=== PATIENT | male | born 1980 | race Caucasian/White ===

== ENCOUNTER 2016-06-09 05:27 | Day surgery (SDC) | payer OTHER ==
[2016-06-09] MEDS ORDERED: 1/2 NS 500 ML ONE (06:07)
[2016-06-09] MEDS ORDERED: DIPRIVAN 1% 50 ML ONE (07:32)
[2016-06-09] MEDS ORDERED: MYLICON DROPS (DOSE) MISC ONE (07:55)
[2016-06-09] MEDS ORDERED: XYLOCAINE-MPF 2% ONE (09:36)
[2016-06-09 09:46] VITALS: BP 144/92
[2016-06-09] MEDS ORDERED: VERSED ONE (14:08)
--- NOTE | 2016-06-15 20:40 | OPERATIVE NOTE ---
PROCEDURE DATE: 06/09/2016 REFERRING PHYSICIAN: José Miguel Gill MD INDICATION FOR PROCEDURE: 1. Nausea with vomiting. 2. Dysphagia. 3. Diarrhea. 4. Heartburn. PROCEDURE PERFORMED: Esophagogastroduodenoscopy with biopsy. CONSENT: Informed consent was obtained from the patient and his mother prior to the procedure. The risks, benefits, and alternatives were discussed. MEDICATIONS: The patient received monitored anesthesia care. PERFORMING PHYSICIAN: Carla Zhong MD. ASSISTANTS: 1. TR Coffman. 2. Sindi Aj RN. 3. Tahmina Turner CRNA. 4. Vinod Rivera MD (Anesthesia). COMPLICATIONS: There were no complications. ESTIMATED BLOOD LOSS: Less than 1 mL. SPECIMENS REMOVED: 1. Duodenal biopsies. 2. Gastric biopsies. FINDINGS: After sedation was achieved, the upper endoscope was inserted to the 2nd portion of the duodenum. The hypopharynx appeared endoscopically normal. The tubular esophagus was normal to the distal esophagus. In the distal esophagus, there were multiple scattered erosions that involved less than 75% of the luminal service consistent with grade B erosive esophagitis. There was a single superficial ulcer at the GE junction with a whitish base and no stigmata of bleeding. The GE junction was measured at 40 cm from the incisors. There was a hiatal hernia from 40-45 cm. In the gastric lumen, there were streaks of erythema consistent with erosive gastritis with superficial erosions present. There was an antral predominance. There was a superficial ulcer with a whitish base in the mid gastric body. There was no stigmata of bleeding. On retroflexed view, there was the aforementioned erosive gastritis, but no other findings. The pylorus appeared endoscopically normal. In the duodenum, there was severe erosive duodenitis with a superficial whitish based ulcer in the bulb. The second portion of the duodenum was erythematous, but no ulcerations were found. After the exam was complete, biopsies were taken from the duodenum and gastric mucosa. The lumen was decompressed and the scope was removed without incident. IMPRESSION: 1. Grade B erosive esophagitis. 2. Superficial esophageal ulcer. 3. Hiatal hernia. 4. Erosive gastritis. 5. Gastric ulcer. 6. Duodenal ulcer. 7. Duodenitis. RECOMMENDATION: 1. Await biopsy results. 2. Begin Prilosec 40 mg daily. 3. Begin Carafate 1 g 4 times a day for 1 month, then stop given his kidney disease. 4. We will proceed with colonoscopy as previously scheduled.
--- NOTE | 2016-06-15 20:56 | OPERATIVE NOTE ---
PROCEDURE DATE: 06/09/2016 REFERRING PHYSICIAN: José Miguel Gill. INDICATION FOR PROCEDURE: 1. Diarrhea. 2. Fecal incontinence, new. PROCEDURE PERFORMED: Colonoscopy with biopsy. CONSENT: Informed consent was obtained from the patient and his mother prior to the procedure. The risks, benefits, and alternatives were discussed. MEDICATION: The patient received monitored anesthesia care. PERFORMING PHYSICIAN: Carla Zhong MD. ASSISTANTS: 1. TR Coffman. 2. Sindi Aj RN. 3. Tahmina Turner CRNA. 4. Vinod Rivera MD (Anesthesia). COMPLICATIONS: There were no complications. ESTIMATED BLOOD LOSS: Less than 1 mL. SPECIMENS: Random colon biopsy. CECAL INTUBATION TIME: 11 minutes due to looping and tortuosity. WITHDRAWAL: Time: 7 minutes. PREP QUALITY: Poor. Copious amounts of fecal residue had to be evacuated in order to complete the exam. FINDINGS: After the EGD was performed, the pediatric colonoscope was inserted to the cecum. The base of the cecum was obscured by thick tenacious fecal residue that could not be evacuated. There was no evidence of large masses or ulcers identified. The ileocecal valve appeared otherwise normal. Upon withdrawal, the colonic mucosa in the ascending, transverse, descending, and sigmoid colon appeared endoscopically normal. Random biopsies were taken. In the upper rectum, there were grade 1 internal hemorrhoids. On retroflexed view, there were large external hemorrhoids. In the mid rectal body, there were rectal AVMs. After the exam was complete, lumen was decompressed and the scope was removed without incident. IMPRESSION: 1. Poor prep. 2. Grossly normal-appearing colon. 3. Grade 1 internal hemorrhoids. 4. Large external hemorrhoids. 5. Nonbleeding rectal arteriovenous malformations. RECOMMENDATION: 1. Await biopsy results. 2. Begin Bentyl 10 mg p.o. 4 times a day for the diarrhea. 3. He may require anorectal manometry if the fecal incontinence does not improve on Bentyl. 4. He was encouraged to increase the fiber in his diet. 5. I will have the patient return to clinic in 4 weeks to assess interval progress.
== END 2016-06-09 10:05 | disposition home or self-care (01) ==
LOC: ENDO 05:27
PROVIDERS: ATTEND Internal Medicine Gastroenterology
DX: K29.50 Unspecified chronic gastritis without bleeding (principal); R19.7 Diarrhea, unspecified; R15.9 Full incontinence of feces; K64.0 First degree hemorrhoids; K64.4 Residual hemorrhoidal skin tags; Q27.33 Arteriovenous malformation of digestive system vessel; K22.10 Ulcer of esophagus without bleeding
CPT/HCPCS: 88305; 88312; 88313; J2250

== ENCOUNTER 2016-07-20 19:42 | Inpatient (IN) ==
[2016-07-20 20:26] LABS: MANUAL DIFF NEEDED? NO
[2016-07-20 20:35] LABS: BASO% 0.2 % (0.0-0.8); EOS# 0.14 X1000 (0.0-0.7); EOS% 1.5 % (0.0-10.0); HEMATOCRIT 36.9 % (42.0-52.0); HEMOGLOBIN 12.5 g/dL (14.0-18.0); LYMPH# 1.16 X1000 (1.2-3.4); LYMPH% 12.2 % (20.5-51.1); MCH 28.3 PG (27-31); MCHC 33.9 g/dL (33-37); MCV 83.5 FL (81-99); MONO# 0.56 X1000 (0.11-0.59); MONO% 5.9 % (1.7-9.3); MPV 9.5 FL (7.4-10.4); NEUT% 80.2 % (42.2-75.2); PLT 310 X1000 (130-400); RBC 4.42 XMIL (4.7-6.1)
[2016-07-20] MEDS ORDERED: ZOFRAN IV ONE (20:51)
[2016-07-20 21:13] LABS: ALBUMIN 3.9 g/dL (3.5-5.0); CALCIUM 9.9 mg/dL (8.8-10.2); POTASSIUM 3.5 mmol/L (3.5-5.1); TOTAL BILIRUBIN 0.44 mg/dL (0.20-1.00); TOTAL PROTEIN 6.8 g/dL (6.3-8.3)
[2016-07-20] MEDS ORDERED: ATIVAN IV ONE (22:08)
[2016-07-20] MEDS ORDERED: ATIVAN IV PRN (23:57)
[2016-07-20] MEDS ORDERED: ZOFRAN IV PRN (23:57)
--- NOTE | 2016-07-21 00:03 | HISTORY AND PHYSICAL ---
PRIMARY CARE PHYSICIAN: None. CHIEF COMPLAINT: Abdominal pain. HISTORY OF PRESENTING ILLNESS: A 36-year-old, unfortunate male, with a history of spina bifida, end-stage renal disease, hypertension and GERD, who had presented to the emergency department with 1-day history of having worsening abdominal pain. He describes it as a cramping, and he was having nausea, vomiting. He rated the pain at 10/10, and subsequently had come to emergency department. In the ER, he was evaluated. He had imaging done, and as per ER physician he had a small bowel obstruction. An NG tube was placed, and he had some improvement. Due to his presenting symptoms, it was thought that he would need hospitalization for further management. At the time of my examination, he had denied any headache, fever, chills, chest pain, hemoptysis, or weight changes, but complained of still having some abdominal pain. PAST MEDICAL HISTORY: End-stage renal disease on peritoneal dialysis, spina bifida, hypertension, GERD. PAST SURGICAL HISTORY: Back surgery, left kidney transplant, bladder augmentation, multiple orthopedic surgeries to his lower extremities. ALLERGIES: Iron, latex, meperidine and morphine. CURRENT MEDICATIONS: As in MAR. SOCIAL HISTORY: No history of smoking, alcohol or illicit drug use. FAMILY HISTORY: No history of coronary disease. REVIEW OF SYSTEMS: Twelve point systems is as in HPI. Other systems negative. PHYSICAL EXAMINATION: GENERAL: Cooperative, friendly male, he is resting comfortably now. VITAL SIGNS: Temperature 97.5, pulse 113, respirations 22, blood pressure 156/95. He is saturating 100%. HEENT: Atraumatic, normocephalic. PERRLA. NECK: No masses. CHEST: Clear to auscultation. CARDIOVASCULAR: Regular rate and rhythm. ABDOMEN: Soft and distended. EXTREMITIES: Has +1 edema. NEURO: He is awake, alert, oriented x3. : No bladder distention. SKIN: Warm. LABORATORIES AND STUDIES: Sodium 141, potassium 3.5, chloride 91, CO2 is 25, BUN is 55, creatinine 11.1, glucose is 90. WBCs 9.48, hemoglobin 12.5, hematocrit 36.9, platelets 310,000. ASSESSMENT: A 36-year-old male with a history of end-stage renal disease, on peritoneal dialysis and spina bifida, who presented to the emergency department with a 1-day history of having worsening abdominal pain. He is found to have a small bowel obstruction. He will need hospitalization for further management. 1. Suspected small-bowel obstruction. 2. End-stage renal disease, peritoneal dialysis. 3. Spina bifida. 4. Hypertension. PLAN: 1. We will admit patient to medical floor. 2. We will keep patient NPO. Keep NG tube in place, and consult general surgery. 3. We will call also nephrology for peritoneal dialysis. 4. We will give patient adequate pain control. 5. We will monitor blood pressure, resume antihypertensive agent. 6. We will continue to follow and reassess. cc: Alexander Keating MD
--- NOTE | 2016-07-21 01:40 | PROVIDER DOCUMENTATION ---
This chart was entered by Delisa Orr Scribe, acting as scribe for Axel Giron MD. HPI-Abdominal Pain/GI Problem - General Chief Complaint: Abdominal Pain Stated Complaint: abd pain Time Seen by Provider: 07/20/16 20:31 Source: patient Allergies/Adverse Reactions: Patient Allergies Allergy/AdvReac Type Severity Reaction Status Date / Time iron dextran complex Allergy RASH Verified 07/20/16 22:31 latex Allergy ANAPHYLAXIS Verified 07/20/16 22:31 meperidine HCl * Allergy Unknown Verified 07/20/16 22:31 [From Demerol] morphine Allergy Unknown Verified 07/20/16 22:31 pink dye Allergy RASH Uncoded 07/20/16 22:31 Home Medications: Home Medication List Medication Instructions Recorded Confirmed Last Taken Type Aspirin [Aspirin EC] 81 mg PO DAILY 01/13/14 07/21/16 06/08/16 History Calcitriol 0.25 mcg PO DAILY 01/13/14 07/21/16 07/20/16 09:00 History Carvedilol 12.5 mg PO BID 01/13/14 07/21/16 07/20/16 09:00 History PRAVAstatin [Pravachol] 10 mg PO DAILY 01/13/14 06/09/16 06/07/16 History Sodium Bicarbonate 3,250 mg PO BID 01/13/14 07/21/16 07/20/16 09:00 History Alprazolam [Xanax] 0.25 mg PO PRN PRN 06/09/16 07/21/16 Unknown History Cinacalcet HCl [Sensipar] 60 mg PO DAILY 06/09/16 07/21/16 07/20/16 09:00 History Clonidine [Catapres] 0.1 mg PO Q8HR 06/09/16 07/21/16 07/20/16 09:00 History Dicyclomine [Bentyl] 10 mg PO 4XDAY #120 capsule 06/09/16 07/21/16 07/20/16 10: 00 Rx Escitalopram Oxalate [Lexapro] 10 mg PO HS 06/09/16 07/21/16 06/08/16 History Guaifenesin 400 mg PO BID 06/09/16 07/21/16 07/20/16 09:00 History Losartan [Cozaar] 100 mg PO DAILY 06/09/16 07/21/16 07/20/16 09:00 History Omeprazole [Prilosec] 40 mg PO DAILY #30 capsule. 06/09/16 07/21/16 07/20/16 09:00 Rx Sucralfate [Carafate] 1 gm PO #120 tablet 06/09/16 07/21/16 07/20/16 09: 00 Rx - History of Present Illness-ABD Nature of Presenting Problems: 36 year old M presents to the ED with a cc of ABD pain with an onset of this morning. PT states that he had one epidose of vomting this morning. Pt states that he takes Miralax almost daily for constipation. Pt is a peritoneal dialysis pt. On assessment, pt became nauseated and began vomiting again. Abdominal Pain Onset Location: reports: generalized abdomen Pain Radiation: reports: no radiation Quality of Pain: reports: aching Severity in ED: reports: moderate Onset/Duration: reports: this morning Timing: reports: still present Activities at Onset: reports: none Modifying Factors: improves with: nothing Associated Symptoms: reports: nausea, vomiting Bruising or Bleeding Gums?: No Similar Symptoms Previously?: No Recently seen or treated by another doctor?: No Review of Systems - Adult - REVIEW OF SYSTEMS - ADULT Constitutional: denies: chills, fever Eyes: reports: no symptoms reported Ears, Nose, Mouth & Throat: reports: no symptoms reported Cardiovascular: reports: no symptoms reported Respiratory: reports: no symptoms reported Gastrointestinal: reports: abdominal pain, nausea, vomiting. denies: diarrhea Genitourinary: reports: no symptoms reported Musculoskeletal: reports: no symptoms reported Integumentary: reports: no symptoms reported Neurological: reports: no symptoms reported Psychiatric: reports: no symptoms reported Endocrine: reports: no symptoms reported Hematologic/Lymphatic: reports: no symptoms reported Allergic/Immunologic: reports: no symptoms reported All Other Systems: Reviewed and Negative Past History - Adult - PAST MEDICAL HISTORY-ADULT Review of Records: reports: Nursing Assessment Review, Medications Reviewed Major Childhood Illnesses: reports: denies history Cardiovascular: reports: HTN Genitourinary: reports: dialysis, ESRD Neurological: reports: Seizures/Epilepsy Endocrine/Immune: reports: Diabetes - PRIOR SURGERIES/PROCEDURES Surgical/Procedure History: reports: orthopedic (extremity), other (bladder augmentation, nephrectomy) - IMMUNIZATION STATUS Childhood Immunizations: See Nurse Assessment Flu Vaccine: See Nurse Assessment - SOCIAL HISTORY Smoking: non-smoker Substance Use: none/never Alcohol Use Frequency: never Physical Exam-General - PHYSICAL EXAM-ADULT Initial Vital Signs Reviewed: Yes - CONSTITUTIONAL General Appearance: alert, mild distress - RESPIRATORY Respiratory: chest non-tender, lungs clear, normal breath sounds - CARDIOVASCULAR Cardiovascular: normal peripheral pulses, regular rate, rhythm, no edema - GASTROINTESTINAL (ABDOMEN) Abdominal Exam: distended, tenderness (generalized), mass (just above umbilicous that is possible incarcerated bowel) - SKIN Integumentary: normal color, normal turgor, warm/dry - PSYCHIATRIC Psych/Mental Status: normal mood/affect, normal thought content, normal thought process, oriented x 3 Progress - PLAN OF CARE/RESULTS Progress/Plan/Lab Results: Vital Signs - 8 hr 07/20/16 19:48 Temperature 97.5 F L Pulse Rate 113 H Respiratory Rate 22 Blood Pressure 156/95 O2 Sat by Pulse Oximetry 100 Laboratory Results - last 24 hr 07/20/16 19:55 WBC 9.48 RBC 4.42 L Hgb 12.5 L Hct 36.9 L MCV 83.5 MCH 28.3 MCHC 33.9 RDW Std Deviation 15.4 H Plt Count 310 MPV 9.5 Immature Gran % (Auto) 0.0 Neut % (Auto) 80.2 H Lymph % (Auto) 12.2 L Garvin % (Auto) 5.9 Eos % (Auto) 1.5 Baso % (Auto) 0.2 Immature Gran # (Auto) 0.00 Neut # (Auto) 7.60 H Lymph # (Auto) 1.16 L Garvin # (Auto) 0.56 Eos # (Auto) 0.14 Baso # (Auto) 0.02 Orders Category Date Time Status Saline Loc DIRECTED Care 07/20/16 19:50 Active NPO Diet 07/20/16 19:50 Active flat [FLAT/UPRIGHT ABD/1 VIEW CHEST] [RAD] Stat Exams 07/20/16 19:49 Taken AMYLASE [CHEM] Stat Lab 07/20/16 19:55 Received CBC WITH ELECTRONIC DIFF [HEME] Stat Lab 07/20/16 19:55 Completed COMPREHENSIVE METABOLIC PANEL [CHEM] Stat Lab 07/20/16 19:55 Received LIPASE [CHEM] Stat Lab 07/20/16 19:55 Received URINALYSIS W/POSS RFLX CULT [URINALYSIS] Stat Lab 07/20/16 19:50 Uncollected Result Diagrams: 07/20/16 19:55 07/20/16 19:55 - XRAY 1 XRAY Study: Abdomen Impression: Abnormal XRAY Interpretation: bowel obstruction, possibly small bowel: Dr. Giron(ER MD ) - CONSULTS/PCP/HOSPITALIST Notification #1 *Consult/PCP/Hospitalist*: Dr. Castillo(surgeon) Time Discussed: 20:40 Consult Disposition: other (scan pt without contrast and call back with results) #2 Consult: Dr. Castillo(surgeon) Time Discussed: 21:45 Consult Disposition: Admit (admit to hospitalist) #3 Consult: Dr. Keating(hospitalist) Time Discussed: 21:54 Consult Disposition: Will see in ED, Admit Departure - Departure Time of Disposition Decision: 01:00 DIAGNOSIS: Small bowel obstruction Disposition: ADMITTED INPATIENT 09 Certified Medical Emergency: Emergent Condition: Fair This chart was documented by the indicated scribe, (Delisa Orr Scribe) and accurately reflects the services I performed and decisions made by me, Axel Giron MD, as attested by the provider's signature.
[2016-07-21] MEDS: NS 1,000 ML IV SCH ×2 (03:33→16:15)
[2016-07-21 04:20] LABS: URINE MICRO REVIEW NEEDED? NO; URINE SOURCE CATH
[2016-07-21 04:31] LABS: BILIRUBIN URINE NEGATIVE (NEGATIVE); BLOOD URINE SMALL (NEGATIVE); COLOR YELLOW; GLUCOSE URINE NEGATIVE (NEGATIVE); LEUKOCYTES URINE SMALL (NEGATIVE); NITRITE URINE NEGATIVE (NEGATIVE); PH URINE 8.5; PROTEIN URINE 600 mg/dL (NEGATIVE); SP GRAVITY URINE 1.009; TURBIDITY URINE HAZY (CLEAR); UROBILINOGEN URINE NORMAL (NORMAL)
[2016-07-21 04:33] LABS: UR EPITHELIAL CELLS <10 /HPF (<10); URINE BACTERIA 2+ /HPF; URINE CULTURE NEEDED? YES; URINE RBC <10 /HPF (<10)
[2016-07-21 06:11] LABS: MANUAL DIFF NEEDED? NO
[2016-07-21 06:27] LABS: BASO% 0.1 % (0.0-0.8); EOS% 1.3 % (0.0-10.0); HEMATOCRIT 35.6 % (42.0-52.0); HEMOGLOBIN 11.8 g/dL (14.0-18.0); LYMPH# 1.07 X1000 (1.2-3.4); LYMPH% 13.4 % (20.5-51.1); MCH 28.5 PG (27-31); MCHC 33.1 g/dL (33-37); MONO# 0.53 X1000 (0.11-0.59); MONO% 6.6 % (1.7-9.3); MPV 9.4 FL (7.4-10.4); NEUT% 78.6 % (42.2-75.2); PLT 260 X1000 (130-400); RBC 4.14 XMIL (4.7-6.1)
[2016-07-21 06:49] LABS: CALCIUM 9.2 mg/dL (8.8-10.2)
--- NOTE | 2016-07-21 07:26 | Diag Imaging Result Document ---
PROCEDURE NAME: CHEST/ABD TUBE PLACEMENT - 07/21/2016 AP CHEST AND ABDOMEN: For NG tube placement. FINDINGS: There is a peritoneal dialysis catheter the tip of which apparently ascends into the left lateral abdomen. This overlaps the NG tube, the tip of which is probably in the lower portion of the body of the stomach. The NG tube which was present on 07/20/2016 has evidently been replaced. There continues to be gaseous dilatation of most of the visualized small bowel. There is some gas and stool in the visualized colon which is not distended. The findings were discussed with Dr. Castillo at 0710 hours. IMPRESSION: NG tube in the stomach. Small bowel obstruction.
--- NOTE | 2016-07-21 07:36 | Diag Imaging Result Document ---
PROCEDURE NAME: ABDOMEN/PELVIS W/O CONTRAST - 07/20/2016 CT ABDOMEN AND PELVIS: A CT dose reduction protocol was used. COMPARISON: None. FINDINGS: There is some trace reticulonodular opacity in the right lower lobe, nonspecific. There is a peritoneal dialysis catheter in the abdomen and ascites. There is also apparently shunt catheter tubing from above the abdomen and chest. A small ventral hernia at the site of entry of the peritoneal dialysis catheter contains only fluid. There is an apparent failed renal transplant in the left side of the pelvis. The [place] kidneys are absent. There is a urostomy Martinez drainage catheter at the right side of the pelvis. Urinary bladder is absent and is replaced with ascites fluid. There is at least a partial small bowel obstruction, with numerous bowel loops measuring up to 3.5 cm. There are some collapsed distal loops in the central abdomen and right lower quadrant. There is some swirling of mesenteric vessels at the level of the mid superior mesenteric artery. 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 IMPRESSION: 1. High-grade partial small bowel obstruction probably due to internal herniation. This would be in the central abdomen involving the distal small bowel. 2. Other indeterminate findings described above. [facility]
--- NOTE | 2016-07-21 07:58 | CONSULTATION ---
DATE OF CONSULTATION: 07/21/2016 REQUESTING PHYSICIAN: Hospitalist Service REASON FOR CONSULTATION: Small bowel obstruction. HISTORY OF PRESENT ILLNESS: A 36-year-old male with a history of spina bifida, end- stage renal disease, hypertension, and gastroesophageal reflux disease presenting to the Emergency Department with a 1 day history of worsening abdominal pain. He initially described it as cramping. He was reported to have nausea and vomiting. When he was evaluated he had imaging that looked like a small bowel obstruction and he had an NG tube placed at that time where he felt some improvement. He also had a CT scan that confirmed the small bowel obstruction. He also has a peritoneal dialysis catheter that does not appear to be the source of obstruction and the insertion site does not seem to be the point of obstruction. He says that the NG tube helped but he sneezed it out and he has had another one placed but we have not confirmed its position as of yet. He was admitted to the hospital for resuscitation, monitoring, and for evaluation of this bowel obstruction. Again, he said he was feeling somewhat better after the NG tube was initially placed. PAST MEDICAL HISTORY: Includes: 1. End-stage renal disease on peritoneal dialysis. 2. Spina bifida. 3. Hypertension. 4. Gastroesophageal reflux disease. PAST SURGICAL HISTORY: Previous back surgery, left kidney transplant, bilateral nephrectomies, previous bladder augmentation, and multiple orthopaedic surgeries on his lower extremity. ALLERGIES: Iron, latex, and meperidine, and morphine. CURRENT MEDICATIONS: Noted in the MAR. SOCIAL HISTORY: No alcohol, tobacco, or illicit drugs. FAMILY HISTORY: Negative for coronary artery disease. REVIEW OF SYSTEMS: A full 10 point review of systems was obtained and negative except as specified in the HPI. PHYSICAL EXAMINATION: VITAL SIGNS: The patient is currently afebrile. His heart rate is in the one-teens to one- twenties. Blood pressure is 146/76. O2 saturation is 94% on room air. GENERAL: No distress but appears uncomfortable. male who looks his stated age. HEENT: Normocephalic, atraumatic. Pupils are equal, round, and reactive to light. Mucous membranes are moist. Oropharynx benign. NECK: Supple. Trachea is midline. CARDIOVASCULAR: There is some mild tachycardia. LUNGS: Grossly clear. ABDOMEN: Soft but distended. There were peritoneal signs but no real major abdominal pain noted at this time. EXTREMITIES: He can move all extremities. NEUROLOGIC: The patient is awake and can move all extremities. SKIN: No signs of jaundice. VASCULAR: All extremities are perfused. LABORATORY DATA: Laboratory was reviewed from admission. His white blood cell count is normal. Hematocrit is 36 and platelet count 310. His creatinine is 11.1. ASSESSMENT AND PLAN: A 36-year-old male with multiple medical comorbidities now with potential small bowel obstruction. 1. Small bowel obstruction. At this time I think it is partial and is likely related to adhesions. We will try nonoperative conservative management. Right now with the NG tube we will reposition it and follow up with his abdominal film. We will continue to monitor him. My partner will follow the patient over the weekend. 2. Multiple medical comorbidities including end-stage renal disease on peritoneal dialysis. At this time we will continue with peritoneal dialysis. If the patient's bowel obstruction does come to the point of requiring surgery he will likely need some kind of access. By report the patient says his left kidney transplant is not working and potentially failing and he needs another one. I appreciate the consult and will continue to follow the patient while he is in the hospital. cc: Alex Castillo MD
--- NOTE | 2016-07-21 08:00 | Diag Imaging Result Document ---
PROCEDURE NAME: CHEST/ABD TUBE PLACEMENT - 07/20/2016 AP CHEST AND ABDOMEN FOR NG TUBE PLACEMENT: FINDINGS: There is an NG tube with its tip coiled in the fundus of the stomach. Otherwise, there has been no apparent change since 07/20/2016. IMPRESSION: NG tube in the stomach.
--- NOTE | 2016-07-21 08:02 | Diag Imaging Result Document ---
PROCEDURE NAME: FLAT/UPRIGHT ABD/1 VIEW CHEST - 07/20/2016 FLAT AND UPRIGHT WITH CHEST, THREE VIEWS: FINDINGS: The lungs are well expanded. No pneumonia. There is a right jugular line. No pneumothorax. No free air beneath the diaphragm. There are multiple distended loops of bowel. I believe there is a dialysis catheter in the abdomen. There are surgical clips overlying the pelvis. Stool is found in the distal colon. No organomegaly. IMPRESSION: 1. There is at least at partial small bowel obstruction. 2. Mild prominent heart.
[2016-07-21] MEDS ORDERED: LABETALOL IV PRN (13:52)
--- NOTE | 2016-07-21 14:37 | Diag Imaging Result Document ---
PROCEDURE NAME: CHEST/ABD TUBE PLACEMENT - 07/21/2016 PORTABLE CHEST X-RAY AT 1350 HOURS: COMPARISON: 0610 hours. FINDINGS: The nasogastric tube has been withdrawn somewhat. The tip is in the left upper quadrant presumably in the distal stomach. There is decrease in the small bowel gaseous distention. IMPRESSION: See findings.
--- NOTE | 2016-07-21 15:15 | PROGRESS NOTE ---
DATE: 07/21/2016 SUBJECTIVE: The patient reports feeling fine. He reports some abdominal distention but no abdominal pain. No fever or chills. OBJECTIVE: Vital Signs: Temperature 98.2 degrees, heart rate 109, respiratory rate 20, blood pressure 152/90, O2 saturation 96% on room air. General Examination: This is a 36-year-old, male, lying in bed, in no acute distress speech. HEENT: Head is normal, normocephalic, atraumatic. Anicteric sclerae and pale conjunctivae. Mucous membranes moist. Neck: Supple. No JVD noted. No carotid bruits. No lymphadenopathy. No thyromegaly. Cardiovascular: S1, S2 heard. No murmurs, gallops, or rubs. Regular rate and rhythm. Respiratory: Clear bilaterally to auscultation. No work of breathing or using accessory muscles. Abdomen: Soft, nontender to palpation. Bowel sounds distant but present. No organomegaly. Extremities: No clubbing or cyanosis. 1+ pitting edema. Peripheral pulses present in both legs. Neurological: The patient is alert and oriented x3. Able to move 4 extremities. Cranial nerves 2-12 grossly normal. LABORATORY DATA: White cell count 7.98, hemoglobin 11.8, hematocrit 35.6, platelets 260,000. BMP unremarkable except creatinine 11.7, BUN 60. ASSESSMENT: 1. Partial small bowel obstruction. 2. End-stage renal disease on peritoneal dialysis. 3. Hypertension. 4. History of spina bifida. PLAN: The patient was admitted to the hospital because of a small bowel obstruction. He was evaluated by General Surgery. They think that this is a partial small obstruction and they agree with the NG tube which is helping this patient. Patient reports passing gas. Surgery is going to follow this patient over the weekend. We are going to continue with IV fluids and pain medication as needed. For end-stage renal disease and peritoneal dialysis, we have consulted Dr. Gill. For hypertension, the patient reported that he takes 4 medications for high blood pressure and when he misses 1 or 2 of those medications, the blood pressure goes mina high. We are going to restart only clonidine p.o. and Coreg beta-kamlesh. We will be giving labetalol. Also we will use hydralazine IV as well. cc: Marino Rosales MD
--- NOTE | 2016-07-21 15:52 | CONSULTATION ---
DATE OF CONSULTATION: 07/21/2016 REASON FOR CONSULTATION: Assistance with management. HISTORY OF PRESENT ILLNESS: Mr. Rome is a 36-year-old, white male who is well known to me. He has known end-stage kidney disease secondary to obstructive uropathy. He has a history of spina bifida and has neurologic consequences that resulted in renal failure. He has also had a renal transplantation but is back on dialysis and has been for several years. He just started BiPAP treatment for his obstructive sleep apnea. He had 1 night of therapy and had to discontinue it early because he felt the pressure with excessive. He had swelling in the feet that they attributed to air. He began having intense abdominal pain which was crampy in nature and severe in severity. It lasted for about 1 day and was associated with several episodes of emesis. He continued to have loose bowel movements during that time. His PD fluid was clear to visual assessment. Because of his symptoms he was directed to the emergency room. CT of the abdomen suggested high-grade small bowel obstruction and so he was admitted and evaluated by Dr. Harris. Dr. Harris felt that his obstruction was likely related to adhesions and opted for nonsurgical management initially. This morning, his pain is improved and he has not vomited today. No chills, fever, sweats or night sweats. No bowel movement today. No shortness of breath. PAST MEDICAL HISTORY: As above. He also has hypertension and reflux, esophagitis. HOME MEDICATIONS: Sodium bicarbonate, pravastatin, carvedilol, calcitriol, aspirin, losartan, clonidine, escitalopram, cinacalcet, guaifenesin, omeprazole, sucralfate, alprazolam, dicyclomine. ALLERGIES: Iron dextran, Lasix, meperidine, morphine. SOCIAL HISTORY: He is single and his mother is his primary caregiver when needed. No alcohol or tobacco. FAMILY HISTORY: Negative. REVIEW OF SYSTEMS: Otherwise negative. PHYSICAL EXAMINATION: Vital Signs: Blood pressure 144/81, heart rate 116, respirations 21, afebrile. Generally: He is a young white man lying in bed. No acute distress. Skin: Warm and dry. Conjunctivae are pink. Pupils are equal. Oropharynx is clear and moist. Tongue is normal. Neck: Supple. Trachea is midline. No jugular venous distention. Heart: PMI is nondisplaced. Regular rate and rhythm with an S4. Lungs: Have equal breath sounds. No crackles or wheezes. Abdomen: Distended and soft. Bowel sounds are present. No tinkles or rushes. No significant tenderness. Extremities: Have 1+ edema. No clubbing or cyanosis. Sodium 143, potassium 4.0, chloride 95, bicarbonate 27, BUN 60, creatinine 11.7. Hemoglobin 11.8. IMPRESSION: 1. Small-bowel obstruction. If he does require surgery, then he will need a tunneled hemodialysis catheter to provide his treatment during the period of healing. 2. End-stage renal disease. We will plan his routine peritoneal dialysis prescription tonight. 3. Electrolytes/acid base in target. 4. Anemia is in target. cc: José Miguel Gill MD
[2016-07-21] MEDS ORDERED: CHLORASEPTIC SPRAY MT PRN (16:14)
[2016-07-21] MEDS: CATAPRES PO SCH ×2 (16:16→22:06)
[2016-07-21] MEDS: SODIUM CHLORIDE 0.9% INJ SCH (17:29)
[2016-07-21] MEDS: PROTONIX IV SCH (17:29)
[2016-07-22] MEDS: CATAPRES PO SCH ×3 (04:51→22:18)
[2016-07-22] MEDS: NS 1,000 ML IV SCH ×2 (04:52→17:09)
[2016-07-22] MEDS: SODIUM CHLORIDE 0.9% INJ SCH ×2 (04:59→17:22)
[2016-07-22] MEDS: PROTONIX IV SCH ×2 (04:59→17:22)
[2016-07-22 06:27] LABS: MANUAL DIFF NEEDED? NO
[2016-07-22 06:32] LABS: BASO% 0.1 % (0.0-0.8); EOS# 0.29 X1000 (0.0-0.7); EOS% 4.3 % (0.0-10.0); HEMATOCRIT 36.5 % (42.0-52.0); LYMPH# 0.96 X1000 (1.2-3.4); LYMPH% 14.2 % (20.5-51.1); MCH 28.8 PG (27-31); MCHC 32.9 g/dL (33-37); MCV 87.5 FL (81-99); MONO# 0.46 X1000 (0.11-0.59); MONO% 6.8 % (1.7-9.3); MPV 9.2 FL (7.4-10.4); NEUT% 74.6 % (42.2-75.2); PLT 296 X1000 (130-400); RBC 4.17 XMIL (4.7-6.1)
[2016-07-22 07:00] LABS: CALCIUM 9.2 mg/dL (8.8-10.2); POTASSIUM 3.7 mmol/L (3.5-5.1)
--- NOTE | 2016-07-22 10:26 | Diag Imaging Result Document ---
PROCEDURE NAME: CHEST-PORTABLE - 07/22/2016 PORTABLE CHEST ABDOMEN: COMPARISON: Study performed on 07/21/2016 at 1350. FINDINGS: There is a nasogastric tube overlying the esophagus and upper stomach. An additional catheter overlies the left abdomen. No free air beneath the diaphragm. IMPRESSION: Nasogastric tube enters the stomach.
--- NOTE | 2016-07-22 10:56 | PROGRESS NOTE ---
DATE: 07/22/2016 SUBJECTIVE: He states he had no pain overnight. Still no bowel movement. No vomiting. NG tube is still in place and was advanced. No shortness of breath. OBJECTIVE: Vital Signs: Blood pressure 134/69, heart rate 105, respirations 21, afebrile. General: He is a healthy-appearing man sitting up, in no distress. Skin: Warm and dry. HEENT: Conjunctivae are pink. Oropharynx is dry. Neck: Neck veins are not distended. Heart: Regular without murmurs or gallops. Lungs: Have equal breath sounds. No crackles or wheezes. Abdomen: Distended and soft. Bowel sounds are present. Nontender. Extremities: Have no edema, clubbing, or cyanosis. LABORATORY DATA: Sodium 145, potassium 3.7, chloride 98, bicarbonate 28, BUN 52, creatinine 11.6. Hemoglobin 12.0. IMPRESSION: 1. Small bowel obstruction. Appreciate the assistance of Dr. Castillo and his team. Continue current care. 2. End-stage renal disease. Will continue his routine outpatient dialysis prescription. 3. Pain. Controlled. 4. Electrolytes/acid base/anemia. All in target. cc: José Miguel Gill MD
--- NOTE | 2016-07-22 11:45 | PROGRESS NOTE ---
DATE: 07/22/2016 SUBJECTIVE: Mr. Crow Rome is a 36-year-old white male. He has a history of a renal transplant and also reconstruction of the bladder. He was admitted with a small bowel obstruction. An NG tube has been placed. Since his admission clinically he has gotten better and his abdomen is softer and he is using peritoneal dialysis. He is on the waiting list for another kidney. His mother gave him his 1st kidney. OBJECTIVE: He is awake, cooperative, seems comfortable. He is NPO with a pediatric NG tube which is not really functional. PLAN: We will leave the NG tube to get a feel for how much output he is having. If it is not functional, we will remove it. He states that he has had some flatus and even a small bowel movement and as we removed his NG tube, we will advance his diet. cc: Nadya Keyes MD
--- NOTE | 2016-07-22 14:24 | PROGRESS NOTE ---
DATE: 07/22/2016 SUBJECTIVE: Patient is getting better. No abdominal pain. No fever, chills. No nausea or vomiting. OBJECTIVE: Vital Signs: Temperature 98.5 degrees, heart rate 105, respiratory rate 21, blood pressure 134/69, O2 saturation 96% on room air. General: This is a 36-year-old, male, lying in bed, in no acute distress. HEENT: Head is normocephalic, atraumatic. Anicteric sclerae and pale conjunctivae. Mucous membranes moist. Neck: Supple. No JVD noted. No carotid bruits. No lymphadenopathy. No thyromegaly. Cardiovascular: S1, S2 heard. No murmurs, gallops, or rubs. Regular rate and rhythm. Respiratory: Clear bilaterally to auscultation. No work of breathing or using accessory muscles. Abdomen: Soft. Nontender to palpation. Patient using an NG tube. Bowel sound distant but present. Extremities: No clubbing or cyanosis but there is 1+ pitting edema and peripheral pulses present in both legs. Neurologic: Patient alert, oriented x3. Able to move 4 extremities. Cranial nerves 2-12 grossly normal. LABORATORY DATA: White cell count 6.78. Hemoglobin 12.0. Hematocrit 36.5, platelets 296,000 and BMP remarkable for calcium 11.6, and creatinine . ASSESSMENT AND PLAN: 1. Partial small bowel obstruction. Dr. Keyes from general surgery has evaluated this patient. He plans to keep his NG tube to see how much fluid it removes and if it is not functioning will probably take it out tomorrow. We will follow his recommendations. 2. End-stage renal disease on peritoneal dialysis. Dr. Gill from Nephrology is following this patient. We will continue with dialysis as usual. 3. Hypertension. Blood pressure is under control. We have restarted clonidine and Coreg has been replaced by Toprol. At this point, we are going to continue with the same treatment. 4. History of spina bifida. Aware. cc: Marino Rosales MD
[2016-07-22] MEDS: SYSTANE EYE DROPS BOTH EYES SCH ×2 (17:09→22:18)
[2016-07-22] MEDS: FLOVENT 110 MICROGM HFA INH SCH (20:11)
[2016-07-22] MEDS: VENTOLIN HFA INH PRN (20:11)
[2016-07-23] MEDS: SODIUM CHLORIDE 0.9% INJ SCH (05:43)
[2016-07-23] MEDS: CATAPRES PO SCH ×3 (05:44→22:40)
[2016-07-23] MEDS: NS 1,000 ML IV SCH (05:44)
[2016-07-23] MEDS: PROTONIX IV SCH (05:44)
[2016-07-23 06:56] LABS: MANUAL DIFF NEEDED? NO
[2016-07-23 07:00] LABS: BASO% 0.3 % (0.0-0.8); EOS# 0.31 X1000 (0.0-0.7); EOS% 4.6 % (0.0-10.0); HEMATOCRIT 36.5 % (42.0-52.0); HEMOGLOBIN 11.8 g/dL (14.0-18.0); LYMPH# 0.78 X1000 (1.2-3.4); LYMPH% 11.5 % (20.5-51.1); MCH 28.4 PG (27-31); MCHC 32.3 g/dL (33-37); MONO# 0.37 X1000 (0.11-0.59); MONO% 5.4 % (1.7-9.3); MPV 9.1 FL (7.4-10.4); NEUT% 78.2 % (42.2-75.2); PLT 274 X1000 (130-400); RBC 4.15 XMIL (4.7-6.1)
[2016-07-23 07:21] LABS: CALCIUM 9.3 mg/dL (8.8-10.2); POTASSIUM 3.5 mmol/L (3.5-5.1)
[2016-07-23] MEDS: FLOVENT 110 MICROGM HFA INH SCH ×2 (07:27→20:00)
[2016-07-23] MEDS: VENTOLIN HFA INH PRN (07:27)
[2016-07-23] MEDS: SYSTANE EYE DROPS BOTH EYES SCH ×4 (09:10→22:41)
--- NOTE | 2016-07-23 10:48 | PROGRESS NOTE ---
DATE: 07/23/2016 SUBJECTIVE: Mr. Rome is a 36-year-old white male. He has had a history of kidney transplant and bladder reconstruction. His transplant has failed. He is on peritoneal dialysis. He is waiting for another kidney transplant. He was admitted with a small bowel obstruction. OBJECTIVE: He has had an NG tube in place. It has not drained much over the weekend and I removed it this morning. We will start him on clear liquids. He states that he has had some flatus and he looks well and his white blood cell counts normal. VITAL SIGNS: His heart rate is 97, blood pressure 145/81, O2 saturation is 98%. He has no work of breathing. He is afebrile. LABORATORY DATA: His BUN and creatinine are 51 11.9. cc: Nadya Keyes MD
[2016-07-23] MEDS ORDERED: XANAX PO PRN ×2 (11:28→12:24)
[2016-07-23] MEDS: CARAFATE PO SCH ×3 (12:51→22:40)
[2016-07-23] MEDS: BENTYL PO SCH ×3 (12:52→22:41)
--- NOTE | 2016-07-23 15:15 | PROGRESS NOTE ---
DATE: 07/23/2016 SUBJECTIVE: The patient is getting better. No nausea or vomiting. Less abdominal distention. OBJECTIVE: Vital Signs: Temperature 98.3 degrees, heart rate 97, respiratory rate 16, blood pressure 145/81, O2 saturation 98% on room air. General Examination: This is a 36-year-old male, lying in bed, in no acute distress. HEENT: Head is normocephalic, atraumatic. Anicteric sclerae and pale conjunctivae. Neck: Supple. No JVD noted. No carotid bruits. Cardiovascular: S1, S2 heard. No murmurs, gallops, or rubs. Regular rate and rhythm. Respiratory: Clear bilaterally to auscultation. No work of breathing or using accessory muscles. Abdomen: Soft. Nontender to palpation. Bowel sounds present. A little abdominal distention. Bowel sounds present. Extremities: No clubbing, cyanosis, but 1+ pitting edema in both lower extremities. Neurological: Patient is alert and oriented x3. Able to move 4 extremities. Cranial nerves 2 through 12 grossly normal. LABORATORY DATA: White cell count 6.81, hemoglobin 11.8, hematocrit 36.5, platelets 274,000. BMP unremarkable except BUN 51, creatinine 11.9. ASSESSMENT AND PLAN: 1. Partial small bowel obstruction. The patient has been evaluated by surgery and the NG tube has been removed and he has been started on a clear liquid diet. The patient reports feeling better. Less abdominal distention. He had a bowel movement yesterday. We will continue following recommendations from general surgery. 2. End-stage renal disease, on peritoneal dialysis. Dr. Gill is following this patient. 3. Hypertension. Blood pressure is under control. Now that he is able to take p.o. medications we are going to restart all of his home medications today. 4. History of spina bifida, aware. Although he reports that because of this problem and he has had many surgeries, he said that he is a little bit weak so we are going to consult physical therapy to make sure that he is doing fine before releasing him, most probably tomorrow. cc: Marino Rosales MD
[2016-07-23] MEDS ORDERED: LEXAPRO PO SCH (21:00)
[2016-07-23] MEDS: COREG PO SCH (22:40)
[2016-07-23] MEDS: SODIUM BICARBONATE PO SCH (22:40)
[2016-07-24] MEDS: CATAPRES PO SCH ×2 (05:35→13:29)
[2016-07-24 06:02] LABS: MANUAL DIFF NEEDED? NO
[2016-07-24 06:08] LABS: BASO% 0.5 % (0.0-0.8); EOS# 0.31 X1000 (0.0-0.7); EOS% 5.5 % (0.0-10.0); HEMATOCRIT 33.6 % (42.0-52.0); HEMOGLOBIN 11.1 g/dL (14.0-18.0); LYMPH# 0.82 X1000 (1.2-3.4); LYMPH% 14.6 % (20.5-51.1); MCH 28.8 PG (27-31); MCV 87.3 FL (81-99); MONO# 0.48 X1000 (0.11-0.59); MONO% 8.5 % (1.7-9.3); MPV 8.8 FL (7.4-10.4); NEUT% 70.9 % (42.2-75.2); PLT 238 X1000 (130-400); RBC 3.85 XMIL (4.7-6.1)
[2016-07-24 06:24] LABS: CALCIUM 9.2 mg/dL (8.8-10.2); POTASSIUM 3.7 mmol/L (3.5-5.1)
--- NOTE | 2016-07-24 06:37 | PROGRESS NOTE ---
DATE: 07/24/2016 SUBJECTIVE: Patient doing well. His NG tube was removed over the weekend. He is passing gas. He reports a small bowel movement. Tolerates clear liquids at this time. No major issues. OBJECTIVE: Vital Signs: Patient is currently afebrile. His vital signs have been stable. General: No acute distress. Resting comfortably in bed. Cardiovascular: Regular rate and rhythm. Lungs: Grossly clear. Abdomen: Soft, nontender, nondistended. Positive bowel sounds. Extremities: Moves all extremities. The patient is currently undergoing PD catheter dialysis. LABORATORY: Reviewed from this morning. ASSESSMENT/PLAN: A 36-year-old male with multiple medical comorbidities now with resolving small bowel obstruction. 1. Small bowel obstruction. At this time, I think it is resolving. We will advance him to a full liquid diet. We will continue to monitor. Hopefully, can be advanced to regular diet here in the next 24 hours. 2. Multiple medical comorbidities. At this time, patient is being managed by the hospitalist service and Nephrology. We will defer those issues to the services and will continue to follow the patient with you. cc: Alex Castillo MD
[2016-07-24] MEDS: FLOVENT 110 MICROGM HFA INH SCH (07:20)
[2016-07-24 07:49] VITALS: BP 157/99
[2016-07-24] MEDS ORDERED: ASPIRIN EC PO SCH (09:00)
[2016-07-24] MEDS ORDERED: SENSIPAR PO SCH (09:00)
[2016-07-24] MEDS ORDERED: COZAAR PO SCH (09:00)
[2016-07-24] MEDS ORDERED: ROCALTROL PO SCH (09:00)
[2016-07-24] MEDS ORDERED: PRILOSEC PO SCH (09:00)
[2016-07-24] MEDS: SODIUM BICARBONATE PO SCH (09:55)
[2016-07-24] MEDS: COREG PO SCH (09:56)
[2016-07-24] MEDS: BENTYL PO SCH ×2 (09:56→13:28)
[2016-07-24] MEDS: CARAFATE PO SCH ×2 (09:57→13:29)
[2016-07-24] MEDS: SYSTANE EYE DROPS BOTH EYES SCH ×2 (09:58→13:29)
--- NOTE | 2016-07-24 12:21 | PROGRESS NOTE ---
DATE: 07/24/2016 TIME SEEN: 0745. SUBJECTIVE: Mr. Rome is resting quietly in bed. He continues attached to his peritoneal dialysis cycler. He denies chest pain or increased work of breathing. OBJECTIVE: Vital signs: His most recent vital signs, last temperature 98.2 degrees, blood pressure 145/92, heart rate 81, respirations 18. He is on room air. Last recorded saturation is 97%. He has had 1700 in. He has had 325 out. We have not had his dialysis recorded out yet from the previous night. Laboratories: His most recent labs, sodium 146, potassium 3.7, chloride 98, CO2 29, BUN 46, creatinine 11.8, glucose 113, anion gap of 19, calcium is 9.2. White count 5.63, hemoglobin 11.1, hematocrit 33.6, with a platelet count of 238,000. PHYSICAL EXAMINATION: General: This is a 36-year-old white male. He is currently resting in bed. He is in no acute distress. He is sitting up. Skin: Warm and dry. HEENT: Normocephalic, atraumatic. Conjunctivae pink. He has TOÑO. Mucous membranes moist. Neck: Supple. Trachea midline. No JVD. Cardiovascular: Regular rate and rhythm. He is without murmur or gallop. Lungs: Clear to auscultation anteriorly. Equal excursion on room air. Abdomen: Round, soft, nontender. Positive bowel sounds. He has a peritoneal dialysis catheter that is currently intact to his peritoneal dialysis cycler. This is without redness or drainage. She has no tenderness noted to his abdomen. Extremities: No edema. No clubbing or cyanosis. Genitourinary: Not inspected. Minimal void with dialysis assist. Neurological : Alert and oriented x3. ASSESSMENT AND PLAN: 1. End-stage renal disease. Patient continues with his outpatient dialysis prescription per his cycler. No indications for any changes. 2. Electrolytes and acid-base balance and anemia. These are all in target. 3. Small bowel obstruction. Patient states that he has had a bowel movement last night. He continues without any tenderness today, with plans for possible discharge. I would like to thank you for allowing us to follow with this patient. Seen, data reviewed, discussed with Hilario Bell on 07/24/16. I agree with the above assessment and plan of care. rg Dictated by CHAVA Irene for José Miguel Gill MD cc: CHAVA Irene MD [facility]
--- NOTE | 2016-07-25 11:47 | DISCHARGE SUMMARY ---
ADMISSION DATE: 07/20/2016 DISCHARGE DATE: 07/24/2016 CONSULTATIONS: 1. Dr. Alex Castillo with general surgery. 2. Dr. José Miguel Gill with nephrology. PERTINENT PROCEDURES: Abdomen and pelvis CT showed high-grade partial small bowel obstruction, probably due to internal herniation. This was in the central abdomen involving the distal small bowel. DISCHARGE DIAGNOSES: 1. Partial small bowel obstruction. Patient evaluated by general surgery with nasogastric tube placement that has been removed, and started on a clear liquid diet and advanced to a regular diet, tolerating. 2. End-stage renal disease, on peritoneal dialysis. Followed by Dr. Gill. 3. Hypertension, controlled. 4. Spina bifida history. Aware. HOSPITAL COURSE: Mr. Rome a 36-year-old, unfortunate male with a history of spina bifida, end-stage renal disease on peritoneal dialysis, hypertension, and GERD. He presented to the ED with a 1-day history of having worsening abdominal pain. He described it as cramping with having nausea and vomiting. Imaging done in the ED showed a small-bowel obstruction. An NG tube was placed. The patient was admitted to the medical floor. He was kept NPO and a consult for general surgery as well as nephrology due to his peritoneal dialysis, antiemetic as well as pain management. General surgery agreed with his NG tube and wanted to manage conservatively with nonoperative treatments. He was kept on his routine peritoneal dialysis prescription while in the hospital. The patient started to have some flatulence as well as small bowel movements. He was able to get his NG tube out. He was advanced to a full liquid diet. He has tolerated that well. Then advanced to a regular diet. He has also tolerated that. Dr. Carlson feels that he is appropriate for discharge today. VITAL SIGNS: Temperature is 98.4 degrees, heart rate 73, respirations 19, blood pressure 157/99, O2 is 97% on room air. DISCHARGE MEDICATIONS: 1. Ventolin inhaler 2 puffs inhaled q.6 hours p.r.n. 2. Xanax 0.25 mg p.o. t.i.d. p.r.n. 3. Aspirin enteric-coated 81 mg p.o. daily. 4. Calcitriol 0.25 mcg p.o. daily. 5. Carvedilol 12.5 mg p.o. b.i.d. 6. Sensipar 60 mg p.o. daily. 7. Catapres 0.1 mg p.o. q.8 hours. 8. Bentyl 10 mg p.o. 4 times a day. 9. Lexapro 10 mg p.o. at bedtime. 10. Flovent 110 mcg 1 puff inhaled RT b.i.d. 11. Guaifenesin 400 mg p.o. b.i.d. 12. Cozaar 100 mg p.o. daily. 13. Prilosec 40 mg p.o. daily. 14. Systane gel eyedrops 1 drop OP 4 times a day. 15. Sodium bicarb 3250 mg p.o. b.i.d. 16. Carafate 1 g p.o. 4 times a day. FOLLOWUP: The patient is being discharged home by Dr. Carlson. He will follow up with Dr. Castillo as well as continue on his scheduled peritoneal dialysis. Patient will need to obtain a primary care physician and follow up with them as well in the next 7-10 days. Patient can return to the ED for any worsening of symptoms. DISCHARGE TIME: 33 minutes. Dictated by CHAVA Cantor for Marino Rosales MD cc: Marino Rosales MD [facility]
== END 2016-07-24 16:19 | disposition home or self-care (01) ==
LOC: ED 19:42 → 3N 23:43 → SUATTDRO 23:43
PROVIDERS: ATTEND Internal Medicine